=== PATIENT | female | born 1965 | race African-American/Black ===

== ENCOUNTER 2017-03-19 07:55 | Inpatient (IN) | payer MEDICAID ==
[~2017-03-19] VITALS: Ht 157.5 cm; Wt 89.4 kg
[2017-03-19] MEDS ORDERED: IPRATROPIUM BROMIDE (0.02%) 0.5MG/2.5ML NEB HHN STA ×2 (08:08→10:21)
[2017-03-19] MEDS ORDERED: ALBUTEROL (0.083%) 2.5MG/3ML NEB HHN STA ×2 (08:08→10:21)
[2017-03-19] MEDS ORDERED: SODIUM CHLORIDE 0.9% 1,000 ML IV ONE (08:08)
[2017-03-19] MEDS ORDERED: METHYLPREDNISOLONE SOD SUCC 125 MG/2 ML VIAL IV STA (08:08)
[2017-03-19] MEDS ORDERED: MAGNESIUM 2 G PREMIX 50 ML IV STA (08:08)
[2017-03-19] MEDS ORDERED: LEVOFLOXACIN 500MG PREMIX 100 ML IV ONE (08:15)
[2017-03-19] MEDS ORDERED: ALBUTEROL (0.5%) 2.5MG/0.5ML NEB HHN ONE (08:21)
[2017-03-19 08:49] LABS: BASOPHILS % 0.8 % (0.0-2.0); EOSINOPHILS % 5.2 % (0.0-5.0); HEMATOCRIT. 32.7 % (36.0-48.0); HEMOGLOBIN. 10.6 g/dL (12.0-16.0); LYMPHOCYTES % 30.6 % (20.0-50.0); MEAN CORPUSCULAR VOLUME 83.3 fL (81.0-99.0); MONOCYTES % 6.5 % (2.0-8.0); NEUTROPHILS % 56.9 % (40.0-76.0); PLATELET 292 x1000/uL (130-400); RED BLOOD CELL COUNT 3.93 mill/uL (4.2-5.4); RED CELL DISTRIBUTION WIDTH 15.4 % (11.6-14.6)
[2017-03-19 08:51] LABS: PARTIAL THROMBOPLASTIN TIME 24.3 sec (23.4-31.0)
[2017-03-19 09:00] LABS: CARBON DIOXIDE 26 mEq/L (21-32); CHLORIDE 112 mEq/L (98-107); TROPONIN I 0.05 ng/mL (0.00-0.04)
[2017-03-19] MEDS ORDERED: DOCUSATE SODIUM 100MG CAPSULE PO PRN (09:00)
[2017-03-19] MEDS ORDERED: ACETAMINOPHEN 650MG/20.3ML UDC GT PRN (09:00)
[2017-03-19] MEDS ORDERED: ACETAMINOPHEN 325MG TABLET PO PRN (09:00)
[2017-03-19] MEDS ORDERED: ONDANSETRON HCL 4MG/2ML VIAL IV PRN (09:00)
[2017-03-19] MEDS ORDERED: NA PHOS,M-B/NA PHOS,DI-BA ENEMA 118ML PR PRN (09:00)
[2017-03-19] MEDS ORDERED: ACETAMINOPHEN 650MG SUPP PR PRN (09:00)
[2017-03-19] MEDS ORDERED: CLONIDINE 0.1MG TABLET PO PRN (09:00)
[2017-03-19] MEDS ORDERED: IPRATROPIUM/ALBUTEROL 0.5-3(2.5)MG/3ML NEB INH PRN (09:00)
[2017-03-19] MEDS ORDERED: MAGNESIUM/ALUMINUM HYDROXIDE/SIMETHICONE 30ML UDC PO PRN (09:00)
[2017-03-19] MEDS ORDERED: DIPHENHYDRAMINE 50MG/ML VIAL IV PRN (09:00)
[2017-03-19 09:06] LABS: HCG SCREEN NEGATIVE
[2017-03-19 09:40] LABS: CLARITY URINE CLEAR (CLEAR); COLOR URINE YELLOW (YELLOW); GLUCOSE URINE 3+ (NEGATIVE); KETONES URINE NEGATIVE (NEGATIVE); LEUKOCYTE ESTERASE URINE NEGATIVE (NEGATIVE); NITRITE URINE NEGATIVE (NEGATIVE); OCCULT BLOOD URINE 2+ (NEGATIVE); PH URINE 5.5 (4.5-8.0); PROTEIN URINE 3+ (NEGATIVE); SPECIFIC GRAVITY URINE 1.019 (1.005-1.030); UROBILINOGEN URINE 0.2 E.U./dL (0.2-1.0)
[2017-03-19] MEDS ORDERED: FUROSEMIDE 20MG/2ML VIAL IVP ONE (11:45)
[2017-03-19 12:00] VITALS: BP 141/98
[2017-03-19 13:01] VITALS: BP 141/98
[2017-03-19] MEDS ORDERED: ACET-2178 PO (14:28)
[2017-03-19] MEDS: GUAIFENESIN 200MG/10ML SUGAR FREE UDC PO PRN (14:36)
[2017-03-19] MEDS: HYDROCODONE/APAP 7.5/325MG 1 TAB TABLET PO PRN ×2 (14:38→20:57)
[2017-03-19] MEDS: SODIUM CHLORIDE 0.9% INJ 3ML FLUSH IVF SCH ×2 (14:47→22:05)
[2017-03-19] MEDS: ENOXAPARIN 40MG/0.4ML SYR SUBCUT SCH (14:48)
[2017-03-19] MEDS ORDERED: ALBU2.5V13 IH (15:16)
[2017-03-19] MEDS ORDERED: ATOR40TA70 PO (15:18)
[2017-03-19] MEDS ORDERED: BENA40TA3 PO (15:18)
[2017-03-19] MEDS ORDERED: HYDR25TA PO (15:19)
[2017-03-19] MEDS ORDERED: METH500T6 PO (15:20)
[2017-03-19] MEDS ORDERED: MOME13HF2 INH (15:22)
[2017-03-19] MEDS ORDERED: DEXTROSE 50% WATER 50ML SYRINGE IV PRN (16:00)
[2017-03-19] MEDS: IPRATROPIUM/ALBUTEROL 0.5-3(2.5)MG/3ML NEB INH SCH ×2 (16:22→20:20)
[2017-03-19] MEDS: BLOOD SUGAR DIAGNOSTIC STRIP TEST SCH ×2 (16:49→22:03)
[2017-03-19] MEDS: INSULIN LISPRO 100 UNITS/ML SUBCUT SCH ×2 (16:49→22:03)
[2017-03-19 18:16] VITALS: BP 161/83
[2017-03-19] MEDS ORDERED: METHOCARBAMOL 500MG TABLET PO PRN (19:15)
[2017-03-19] MEDS ORDERED: ACETAMINOPHEN 325MG TABLET PO SCH (19:15)
[2017-03-19 20:00] VITALS: BP 139/100
[2017-03-19] MEDS ORDERED: INSULIN DETEMIR UD 100 UNITS/ML SYR SUBCUT NR (20:00)
[2017-03-19] MEDS ORDERED: INSULIN REGULAR (HUMULIN R) 300UNITS/3ML SUBCUT NR (20:00)
[2017-03-19] MEDS: BUDESONIDE 0.5MG/2ML NEB HHN SCH (20:25)
[2017-03-19] MEDS: METHYLPREDNISOLONE SOD SUCC 40 MG/ML VIAL IV SCH (20:57)
[2017-03-19] MEDS: ATORVASTATIN CALCIUM 40MG TABLET PO SCH (20:57)
[2017-03-19] MEDS: INSULIN DETEMIR UD 100 UNITS/ML SYR SUBCUT SCH (22:00)
[2017-03-19] MEDS: HYDROCHLOROTHIAZIDE 25MG TABLET PO SCH (22:22)
[2017-03-20] VITALS: BP 129/92
[2017-03-20] MEDS: SODIUM CHLORIDE 0.45% 1,000 ML IV SCH ×3 (00:32→15:15)
[2017-03-20 01:23] LABS: *AMPHETAMINES SCREEN URINE NEGATIVE (NEGATIVE); *BARBITURATES SCREEN URINE NEGATIVE (NEGATIVE); *BENZODIAZEPINES SCREEN URINE NEGATIVE (NEGATIVE); *COCAINE SCREEN URINE PRESUMTIVE POSITIVE (NEGATIVE); CANNABINOID URINE SCREEN NEGATIVE (NEGATIVE); METHADONE URINE SCREEN NEGATIVE (NEGATIVE); OPIATES URINE SCREEN PRESUMTIVE POSITIVE (NEGATIVE); PHENCYCLIDINE URINE SCREEN NEGATIVE (NEGATIVE)
[2017-03-20 04:00] VITALS: BP 148/75
[2017-03-20] MEDS: HYDROCODONE/APAP 7.5/325MG 1 TAB TABLET PO PRN ×3 (04:29→20:39)
[2017-03-20] MEDS: IPRATROPIUM/ALBUTEROL 0.5-3(2.5)MG/3ML NEB INH SCH ×5 (04:34→23:59)
[2017-03-20] MEDS: BLOOD SUGAR DIAGNOSTIC STRIP TEST SCH ×3 (07:00→18:16)
[2017-03-20] MEDS: SODIUM CHLORIDE 0.9% INJ 3ML FLUSH IVF SCH ×3 (07:00→23:04)
[2017-03-20 07:55] VITALS: BP 159/85
[2017-03-20 07:58] LABS: BASOPHILS % 0.4 % (0.0-2.0); HEMATOCRIT. 30.6 % (36.0-48.0); HEMOGLOBIN. 9.8 g/dL (12.0-16.0); LYMPHOCYTES % 8.4 % (20.0-50.0); MEAN CORPUSCULAR HEMOGLOBIN 26.8 pg (28.0-32.0); MEAN PLATELET VOLUME 8.4 fl (7.4-10.4); MONOCYTES % 2.4 % (2.0-8.0); NEUTROPHILS % 88.8 % (40.0-76.0); PLATELET 273 x1000/uL (130-400); RED BLOOD CELL COUNT 3.65 mill/uL (4.2-5.4); RED CELL DISTRIBUTION WIDTH 15.4 % (11.6-14.6)
[2017-03-20 08:23] LABS: CARBON DIOXIDE 24 mEq/L (21-32); CHLORIDE 102 mEq/L (98-107)
[2017-03-20] MEDS: INSULIN LISPRO 100 UNITS/ML SUBCUT SCH ×4 (08:31→23:24)
[2017-03-20] MEDS: METHYLPREDNISOLONE SOD SUCC 40 MG/ML VIAL IV SCH ×3 (08:31→23:03)
[2017-03-20] MEDS: BENAZEPRIL 20MG TABLET PO SCH ×2 (08:32→23:03)
[2017-03-20] MEDS: HYDROCHLOROTHIAZIDE 25MG TABLET PO SCH (08:32)
[2017-03-20] MEDS: BUDESONIDE 0.5MG/2ML NEB HHN SCH ×2 (08:58→20:28)
[2017-03-20] MEDS: INSULIN DETEMIR UD 100 UNITS/ML SYR SUBCUT SCH ×2 (09:54→23:19)
[2017-03-20 12:00] VITALS: BP 135/70
[2017-03-20] MEDS: ENOXAPARIN 40MG/0.4ML SYR SUBCUT SCH (13:31)
[2017-03-20] MEDS: NICOTINE 14MG PATCH TD SCH ×2 (14:30→23:05)
[2017-03-20 16:00] VITALS: BP 134/82
[2017-03-20 16:27] LABS: BG CARBOXYHEMOGLOBIN 0.3 % (0.5-1.5); BG DEOXYHEMOGLOBIN 4.5 % (0.0-5.0); BG FRACTION INSPIRED OXYGEN 21; BG HCO3 ACT 21.3 mmol/L (22.0-26.0); BG METHEMOGLOBIN 0.3 % (0.0-1.5); BG OXYGEN SATURATION 95.5 % (92.0-98.5); BG OXYHEMOGLOBIN 94.9 % (94.0-97.0); BG PCO2 39.5 mmHg (35.0-45.0); BG PH 7.349 (7.350-7.450); BG PO2 78.4 mmHg (75.0-100.0); BG SAMPLE SITE LEFT RADIAL; BG TOTAL HEMOGLOBIN 11.7 g/dL (12.0-18.0); BG VENT MODE ROOM AIR
[2017-03-20 20:00] VITALS: BP 158/82
[2017-03-20] MEDS: ATORVASTATIN CALCIUM 40MG TABLET PO SCH (23:03)
[2017-03-20] MEDS: GUAIFENESIN 600MG ER TABLET PO SCH (23:03)
[2017-03-20] MEDS: GUAIFENESIN 200MG/10ML SUGAR FREE UDC PO PRN (23:43)
[2017-03-21] VITALS: BP_SYST 142; BP_SYST 150; BP_DIAS 70; BP_DIAS 78
[2017-03-21] MEDS: IPRATROPIUM/ALBUTEROL 0.5-3(2.5)MG/3ML NEB INH SCH ×6 (03:00→23:47)
[2017-03-21] MEDS: ENOXAPARIN 30MG/0.3ML SYR SUBCUT SCH ×2 (03:07→13:07)
[2017-03-21 04:00] VITALS: BP_SYST 152; BP_SYST 164; BP_DIAS 88; BP_DIAS 90
[2017-03-21] MEDS: HYDROCODONE/APAP 7.5/325MG 1 TAB TABLET PO PRN ×4 (04:34→22:52)
[2017-03-21] MEDS: SODIUM CHLORIDE 0.45% 1,000 ML IV SCH (06:24)
[2017-03-21] MEDS: BLOOD SUGAR DIAGNOSTIC STRIP TEST SCH ×5 (06:24→21:13)
[2017-03-21] MEDS: METHYLPREDNISOLONE SOD SUCC 40 MG/ML VIAL IV SCH (06:24)
[2017-03-21] MEDS: SODIUM CHLORIDE 0.9% INJ 3ML FLUSH IVF SCH ×3 (06:25→21:32)
[2017-03-21] MEDS: BUDESONIDE 0.5MG/2ML NEB HHN SCH ×2 (07:36→20:14)
[2017-03-21] MEDS ORDERED: INSULIN LISPRO 100 UNITS/ML SUBCUT NR (07:45)
[2017-03-21 08:00] VITALS: BP 155/75
[2017-03-21] MEDS: INSULIN LISPRO 100 UNITS/ML SUBCUT SCH ×4 (08:06→21:31)
[2017-03-21] MEDS: GUAIFENESIN 600MG ER TABLET PO SCH ×2 (08:12→21:26)
[2017-03-21] MEDS: HYDROCHLOROTHIAZIDE 25MG TABLET PO SCH (08:12)
[2017-03-21] MEDS: BENAZEPRIL 20MG TABLET PO SCH ×2 (08:12→21:26)
[2017-03-21] MEDS: INSULIN DETEMIR UD 100 UNITS/ML SYR SUBCUT SCH ×2 (09:43→21:32)
[2017-03-21 12:00] VITALS: BP 148/70
[2017-03-21 12:32] LABS: HEMOGLOBIN. 10.8 g/dL (12.0-16.0); MEAN CORPUSCULAR HEMOGLOBIN 27.5 pg (28.0-32.0); MEAN CORPUSCULAR VOLUME 84.1 fL (81.0-99.0); MEAN PLATELET VOLUME 8.2 fl (7.4-10.4); PLATELET 295 x1000/uL (130-400); RED BLOOD CELL COUNT 3.93 mill/uL (4.2-5.4); RED CELL DISTRIBUTION WIDTH 15.5 % (11.6-14.6)
[2017-03-21 12:49] LABS: CARBON DIOXIDE 23 mEq/L (21-32); CHLORIDE 103 mEq/L (98-107)
[2017-03-21 13:58] LABS: PLATELET ESTIMATE NORMAL
[2017-03-21 16:00] VITALS: BP 144/85
[2017-03-21] MEDS: GUAIFENESIN 200MG/10ML SUGAR FREE UDC PO PRN (17:38)
[2017-03-21 20:00] VITALS: BP 135/78
[2017-03-21] MEDS: ATORVASTATIN CALCIUM 40MG TABLET PO SCH (21:26)
[2017-03-22 00:35] VITALS: BP 151/77
[2017-03-22] MEDS: ENOXAPARIN 30MG/0.3ML SYR SUBCUT SCH ×2 (02:35→12:57)
[2017-03-22 04:00] VITALS: BP 159/81
[2017-03-22] MEDS: IPRATROPIUM/ALBUTEROL 0.5-3(2.5)MG/3ML NEB INH SCH ×4 (04:26→15:33)
[2017-03-22] MEDS: SODIUM CHLORIDE 0.9% INJ 3ML FLUSH IVF SCH ×2 (06:00→12:57)
[2017-03-22] MEDS: BLOOD SUGAR DIAGNOSTIC STRIP TEST SCH ×3 (06:37→16:25)
[2017-03-22] MEDS: BUDESONIDE 0.5MG/2ML NEB HHN SCH (07:57)
[2017-03-22 08:00] VITALS: BP 149/78
[2017-03-22] MEDS ORDERED: METHYLPREDNISOLONE SOD SUCC 40 MG/ML VIAL IV SCH (09:00)
[2017-03-22] MEDS: INSULIN LISPRO 100 UNITS/ML SUBCUT SCH ×3 (09:01→17:05)
[2017-03-22] MEDS: NICOTINE 14MG PATCH TD SCH (09:03)
[2017-03-22] MEDS: HYDROCHLOROTHIAZIDE 25MG TABLET PO SCH (09:05)
[2017-03-22] MEDS: HYDROCODONE/APAP 7.5/325MG 1 TAB TABLET PO PRN (09:05)
[2017-03-22] MEDS: BENAZEPRIL 20MG TABLET PO SCH (09:05)
[2017-03-22] MEDS: GUAIFENESIN 600MG ER TABLET PO SCH (09:05)
[2017-03-22] MEDS: INSULIN DETEMIR UD 100 UNITS/ML SYR SUBCUT SCH (10:17)
[2017-03-22 12:00] VITALS: BP 130/80
[2017-03-22] MEDS ORDERED: ALPRAZOLAM 0.25 MG TABLET PO PRN (14:30)
[2017-03-22 16:00] VITALS: BP 128/75
[2017-03-22 16:39] VITALS: BP 128/75
[2017-03-22] MEDS ORDERED: INSULIN LISPRO 100 UNITS/ML SUBCUT NR (16:43)
== END 2017-03-22 17:20 | disposition home or self-care (01) | DRG 816 ==
LOC: ER 08:03 → 6WST 08:47 → EDBEDREQTM 08:50 → EDBEDREQ 08:50 → ENRESERV 11:12
PROVIDERS: ADMIT Family Medicine; ATTEND Family Medicine
DX: T40.5X1A Poisoning by cocaine, accidental (unintentional), initial encounter (principal); J96.00 Acute respiratory failure, unspecified whether with hypoxia or hypercapnia; N17.0 Acute kidney failure with tubular necrosis; J18.9 Pneumonia, unspecified organism; I11.0 Hypertensive heart disease with heart failure; J44.0 Chronic obstructive pulmonary disease with (acute) lower respiratory infection; I50.9 Heart failure, unspecified; J45.901 Unspecified asthma with (acute) exacerbation; E11.65 Type 2 diabetes mellitus with hyperglycemia; E66.9 Obesity, unspecified; J44.1 Chronic obstructive pulmonary disease with (acute) exacerbation; F14.90 Cocaine use, unspecified, uncomplicated; F17.210 Nicotine dependence, cigarettes, uncomplicated; T38.0X5A Adverse effect of glucocorticoids and synthetic analogues, initial encounter; Z82.49 Family history of ischemic heart disease and other diseases of the circulatory system; Z82.5 Family history of asthma and other chronic lower respiratory diseases; Z68.36 Body mass index [BMI] 36.0-36.9, adult; Y92.89 Other specified places as the place of occurrence of the external cause; Z71.6 Tobacco abuse counseling
CPT/HCPCS: 36415; 36600; 71010; 80053; 80305; 81001; 82375; 82805; 82947; 82962; 83605; 83690; 83880; 84484; 84703; 85025; 85610; 85730; 87040; 93005; 93306; 94640; 94644; 94664; 96365; 96366; 96368; 96375; 99291; J1650; J1815; J1940; J1956; J2920; J2930; J3475; J7030; J7611; J7620; J7626

== ENCOUNTER 2017-03-31 00:42 | Inpatient (IN) | payer MEDICAID ==
[~2017-03-31] VITALS: Ht 157.5 cm; Wt 81.6 kg
[~2017-03-31 00:42] MED LIST: ACET-2178 PO; ALBU2.5V13 IH; ATOR40TA70 PO; BENA40TA3 PO; HYDR25TA PO; METH500T6 PO; MOME13HF2 INH
[2017-03-31] MEDS ORDERED: METHYLPREDNISOLONE SOD SUCC 125 MG/2 ML VIAL IV STA (01:10)
[2017-03-31] MEDS ORDERED: IPRATROPIUM BROMIDE (0.02%) 0.5MG/2.5ML NEB HHN STA (01:10)
[2017-03-31] MEDS ORDERED: ALBUTEROL (0.083%) 2.5MG/3ML NEB HHN STA (01:10)
[2017-03-31] MEDS ORDERED: MAGNESIUM 2 G PREMIX 50 ML IV ONE (01:15)
[2017-03-31 01:26] LABS: BASOPHILS % 0.7 % (0.0-2.0); HEMOGLOBIN. 10.8 g/dL (12.0-16.0); LYMPHOCYTES % 18.6 % (20.0-50.0); MEAN CORPUSCULAR HEMOGLOBIN 27.8 pg (28.0-32.0); MEAN CORPUSCULAR VOLUME 84.7 fL (81.0-99.0); MEAN PLATELET VOLUME 7.5 fl (7.4-10.4); MONOCYTES % 7.4 % (2.0-8.0); NEUTROPHILS % 68.3 % (40.0-76.0); PLATELET 253 x1000/uL (130-400); RED CELL DISTRIBUTION WIDTH 15.5 % (11.6-14.6)
[2017-03-31] MEDS ORDERED: SODIUM CHLORIDE 0.9% 1,000 ML IV SCH (05:35)
[2017-03-31] MEDS ORDERED: DIPHENHYDRAMINE 50MG/ML VIAL IV PRN (08:00)
[2017-03-31] MEDS ORDERED: DEXTROSE 50% WATER 50ML SYRINGE IV PRN (08:00)
[2017-03-31] MEDS ORDERED: NITROGLYCERIN 0.4MG TABLET SL SL PRN (08:00)
[2017-03-31] MEDS ORDERED: MAGNESIUM/ALUMINUM HYDROXIDE/SIMETHICONE 30ML UDC PO PRN (08:00)
[2017-03-31] MEDS ORDERED: ONDANSETRON HCL 4MG/2ML VIAL IV PRN (08:00)
[2017-03-31] MEDS ORDERED: NA PHOS,M-B/NA PHOS,DI-BA ENEMA 118ML PR PRN (08:00)
[2017-03-31] MEDS ORDERED: LORAZEPAM 2MG/ML CPJ IV PRN (08:00)
[2017-03-31] MEDS ORDERED: ACETAMINOPHEN 325MG TABLET PO PRN (08:00)
[2017-03-31] MEDS ORDERED: CLONIDINE 0.1MG TABLET PO PRN (08:00)
[2017-03-31] MEDS ORDERED: IPRATROPIUM/ALBUTEROL 0.5-3(2.5)MG/3ML NEB HHN ONE (08:00)
[2017-03-31] MEDS ORDERED: DOCUSATE SODIUM 100MG CAPSULE PO PRN (08:00)
[2017-03-31] MEDS ORDERED: GUAIFENESIN 200MG/10ML SUGAR FREE UDC PO PRN (08:00)
[2017-03-31] MEDS ORDERED: IPRATROPIUM/ALBUTEROL 0.5-3(2.5)MG/3ML NEB INH PRN (08:00)
[2017-03-31] MEDS ORDERED: INSULIN DETEMIR UD 100 UNITS/ML SYR SUBCUT SCH (10:34)
[2017-03-31] MEDS ORDERED: KETOROLAC 15MG/ML VIAL IV PRN (11:10)
[2017-03-31] MEDS: ENOXAPARIN 40MG/0.4ML SYR SUBCUT SCH (11:14)
[2017-03-31] MEDS: GUAIFENESIN/DM 600MG/30MG ER TAB 12HR PO SCH ×2 (11:29→22:17)
[2017-03-31] MEDS: INSULIN LISPRO 100 UNITS/ML SUBCUT SCH ×4 (11:29→21:25)
[2017-03-31] MEDS: FAMOTIDINE 20MG/2ML VIAL IV SCH ×2 (11:29→21:00)
[2017-03-31] MEDS: LISINOPRIL 20MG TABLET PO SCH ×2 (11:30→21:00)
[2017-03-31] MEDS: BLOOD SUGAR DIAGNOSTIC STRIP TEST SCH ×3 (11:30→21:14)
[2017-03-31] MEDS: AMLODIPINE 10MG TABLET PO SCH (11:30)
[2017-03-31 11:44] VITALS: BP 190/93
[2017-03-31 11:51] VITALS: BP 190/93
[2017-03-31 12:00] VITALS: BP 190/93
[2017-03-31] MEDS ORDERED: LEVOFLOXACIN 500MG PREMIX 100 ML IV SCH (13:30)
[2017-03-31] MEDS: METHYLPREDNISOLONE SOD SUCC 125 MG/2 ML VIAL IV SCH ×2 (13:42→21:00)
[2017-03-31] MEDS: INSULIN DETEMIR UD 100 UNITS/ML SYR SUBCUT SCH (13:56)
[2017-03-31 16:00] VITALS: BP 158/86
[2017-03-31] MEDS: IPRATROPIUM/ALBUTEROL 0.5-3(2.5)MG/3ML NEB HHN SCH ×2 (16:16→21:19)
[2017-03-31 17:01] LABS: CREATINE KINASE MB FRACTION 4.3 ng/mL (0.5-3.6); TROPONIN I 0.02 ng/mL (0.00-0.04)
[2017-03-31] MEDS ORDERED: GABA-531 PO (18:12)
[2017-03-31] MEDS ORDERED: ZOLPIDEM TARTRATE 5MG TABLET PO PRN (19:00)
[2017-03-31 20:00] VITALS: BP 164/85
[2017-03-31 23:40] VITALS: BP 154/91
[2017-04-01] MEDS: IPRATROPIUM/ALBUTEROL 0.5-3(2.5)MG/3ML NEB HHN SCH ×3 (00:53→09:43)
[2017-04-01 01:37] LABS: CREATINE KINASE MB FRACTION 4.1 ng/mL (0.5-3.6); TROPONIN I 0.02 ng/mL (0.00-0.04)
[2017-04-01 04:41] LABS: *AMPHETAMINES SCREEN URINE NEGATIVE (NEGATIVE); *BARBITURATES SCREEN URINE NEGATIVE (NEGATIVE); *BENZODIAZEPINES SCREEN URINE NEGATIVE (NEGATIVE); *COCAINE SCREEN URINE NEGATIVE (NEGATIVE); CANNABINOID URINE SCREEN NEGATIVE (NEGATIVE); METHADONE URINE SCREEN NEGATIVE (NEGATIVE); OPIATES URINE SCREEN PRESUMTIVE POSITIVE (NEGATIVE); PHENCYCLIDINE URINE SCREEN NEGATIVE (NEGATIVE)
[2017-04-01 04:45] VITALS: BP 147/85
[2017-04-01] MEDS: METHYLPREDNISOLONE SOD SUCC 125 MG/2 ML VIAL IV SCH (06:36)
[2017-04-01] MEDS: BLOOD SUGAR DIAGNOSTIC STRIP TEST SCH (06:38)
[2017-04-01] MEDS: INSULIN LISPRO 100 UNITS/ML SUBCUT SCH (07:49)
[2017-04-01] MEDS: ENOXAPARIN 40MG/0.4ML SYR SUBCUT SCH (09:00)
[2017-04-01] MEDS: FAMOTIDINE 20MG/2ML VIAL IV SCH (09:00)
[2017-04-01] MEDS: LISINOPRIL 20MG TABLET PO SCH (09:37)
[2017-04-01] MEDS: AMLODIPINE 10MG TABLET PO SCH (09:37)
[2017-04-01] MEDS: INSULIN DETEMIR UD 100 UNITS/ML SYR SUBCUT SCH (09:45)
[2017-04-01 10:42] VITALS: BP 138/80
[2017-04-01] MEDS ORDERED: BUDESONIDE 0.5MG/2ML NEB HHN SCH (11:45)
[2017-04-01] MEDS ORDERED: IPRATROPIUM/ALBUTEROL 0.5-3(2.5)MG/3ML NEB HHN PRN (11:45)
[2017-04-01] MEDS ORDERED: PREDNISONE 20MG TABLET PO SCH (17:50)
== END 2017-04-01 12:45 | disposition home or self-care (01) | DRG 133 ==
LOC: ER 00:42 → 6WST 05:37 → EDBEDREQTM 05:40 → EDBEDREQ 05:40 → ENRESERV 07:00 → CANRESERV 07:00 → ENRESERV 10:32
PROVIDERS: ADMIT Internal Medicine; ATTEND Internal Medicine
DX: J96.00 Acute respiratory failure, unspecified whether with hypoxia or hypercapnia (principal); E11.22 Type 2 diabetes mellitus with diabetic chronic kidney disease; R65.10 Systemic inflammatory response syndrome (SIRS) of non-infectious origin without acute organ dysfunction; J44.1 Chronic obstructive pulmonary disease with (acute) exacerbation; E11.65 Type 2 diabetes mellitus with hyperglycemia; J45.901 Unspecified asthma with (acute) exacerbation; D63.8 Anemia in other chronic diseases classified elsewhere; F17.210 Nicotine dependence, cigarettes, uncomplicated; I12.9 Hypertensive chronic kidney disease with stage 1 through stage 4 chronic kidney disease, or unspecified chronic kidney disease; N18.9 Chronic kidney disease, unspecified; Z90.710 Acquired absence of both cervix and uterus; Z71.6 Tobacco abuse counseling
CPT/HCPCS: 36415; 71010; 80048; 80061; 80305; 82550; 82553; 82962; 83036; 84484; 85025; 93005; 93970; 94640; 94644; 94664; 96361; 96365; 96375; 99285; J1650; J1815; J1885; J1956; J2930; J3475; J3490; J7030; J7611; J7620

== ENCOUNTER 2018-03-01 20:22 | Emergency (ER) | payer MEDICAID ==
[~2018-03-01] VITALS: Ht 157.5 cm; Wt 81.4 kg
[~2018-03-01 20:22] MED LIST changes: -BENA40TA3 PO; +BENA40TA9 PO; +GABA-531 PO; -HYDR25TA PO
[2018-03-01] MEDS ORDERED: IBUPROFEN 600MG TABLET PO ONE (23:45)
[2018-03-01 23:51] VITALS: BP 150/83
== END 2018-03-02 | disposition home or self-care (01) ==
LOC: ER 20:36
DX: H53.50 Unspecified color vision deficiencies (principal); G89.29 Other chronic pain; H57.12 Ocular pain, left eye; E11.319 Type 2 diabetes mellitus with unspecified diabetic retinopathy without macular edema; I10 Essential (primary) hypertension; F17.210 Nicotine dependence, cigarettes, uncomplicated; Z79.899 Other long term (current) drug therapy
CPT/HCPCS: 36415; 82947; 82962; 99283

== ENCOUNTER 2018-04-21 19:22 | Emergency (ER) | payer MEDICAID ==
[~2018-04-21] VITALS: Ht 162.6 cm; Wt 91.0 kg
[2018-04-21] MEDS ORDERED: ACETAMINOPHEN 325MG TABLET PO ONE (20:00)
[2018-04-22 00:41] VITALS: BP 148/81
== END 2018-04-22 00:42 | disposition home or self-care (01) ==
LOC: ER 19:22
DX: S00.83XA Contusion of other part of head, initial encounter (principal); R51 Headache; Y04.8XXA Assault by other bodily force, initial encounter; Y93.9 Activity, unspecified; I10 Essential (primary) hypertension; Y92.9 Unspecified place or not applicable
CPT/HCPCS: 70486; 99284

== ENCOUNTER 2018-10-24 00:04 | Emergency (ER) | payer MEDICAID, OTHER ==
[~2018-10-24] VITALS: Ht 162.6 cm; Wt 79.3 kg
[2018-10-24] MEDS ORDERED: IPRATROPIUM/ALBUTEROL 0.5-3(2.5)MG/3ML NEB HHN ONE ×2 (01:00→02:30)
[2018-10-24 01:39] LABS: HEMATOCRIT. 29.8 % (36.0-48.0); HEMOGLOBIN. 9.6 g/dL (12.0-16.0); LYMPHOCYTES % 31.4 % (20.0-50.0); MEAN CORPUSCULAR HEMOGLOBIN 27.2 pg (28.0-32.0); MEAN CORPUSCULAR VOLUME 84.6 fL (81.0-99.0); MEAN PLATELET VOLUME 7.5 fl (7.4-10.4); NEUTROPHILS % 55.6 % (40.0-76.0); PLATELET 284 x1000/uL (130-400); RED BLOOD CELL COUNT 3.52 mill/uL (4.2-5.4); RED CELL DISTRIBUTION WIDTH 15.3 % (11.6-14.6)
[2018-10-24 01:45] LABS: CHLORIDE 119 mEq/L (98-107)
[2018-10-24] MEDS ORDERED: IBUPROFEN 600MG TABLET PO ONE (02:00)
[2018-10-24] MEDS ORDERED: HYDROCODONE/ACETAMINOPHEN 5/325MG TABLET PO ONE (02:15)
[2018-10-24] MEDS ORDERED: METHYLPREDNISOLONE SOD SUCC 125 MG/2 ML VIAL IV ONE (02:30)
[2018-10-24] MEDS ORDERED: PROMETHAZINE/DEXTROMETHORPHAN 6.25-15MG/5ML BOTTLE 120ML PO PRN (04:00)
[2018-10-24 04:30] VITALS: BP 178/93
== END 2018-10-24 04:37 | disposition home or self-care (01) ==
LOC: ER 00:04
DX: J44.1 Chronic obstructive pulmonary disease with (acute) exacerbation (principal); I10 Essential (primary) hypertension; Z79.899 Other long term (current) drug therapy
CPT/HCPCS: 36415; 71045; 80053; 85025; 93005; 94640; 96374; 99284; J2930; J7620; Z7610